=== PATIENT | male | born 1955 | race Caucasian/White ===

== ENCOUNTER → 2023-10-02 08:00 | Outpatient (REF) | payer OTHER, SELFPAY | LOC: RAD 08:00 | PROVIDERS: ATTENDING PHYSICIAN Surgery | DX: R31.9 Hematuria, unspecified (principal) | CPT/HCPCS: 74178; Q9967 ==

== ENCOUNTER 2023-11-06 05:53 | Day surgery (SDC) | payer OTHER, SELFPAY ==
[2023-11-04 10:40] LABS: PT 13.2 Sec (11.4-14.6)
[2023-11-04 10:41] LABS: APTT 29.1 Sec (23.4-35.0); Urine Albumin 1+ (Neg - Trace); Urine Bilirubin Negative (Negative); Urine Character Clear (Clear); Urine Color Yellow; Urine Glucose Negative (Negative); Urine Ketone Negative (Negative); Urine Leukocyte Negative (Negative); Urine Nitrite Negative (Negative); Urine Occult Blood 4+ (Negative); Urine Specific Gravity 1.015 (<1.030); Urine Urobilinogen Negative (Neg - 1+)
[2023-11-04 10:47] LABS: Hematocrit 41.6 % (39.0-52.0); Hemoglobin 14.3 g/dL (13.0-18.0); Mean Corp Hgb Conc. 34.4 g/dL (33.0-37.0); Mean Corpuscular Hgb 29.5 pg (27.0-31.0); Mean Corpuscular Volume 85.8 fL (80.0-94.0); Mean Platelet Volume 11.5 fL (7.4-10.4); Platelet Count 292 10^3/uL (130-400); Red Blood Cell Count 4.85 10^6/uL (4.70-6.10); Red Cell Dist. Width 13.3 % (11.5-14.5); White Blood Cell Count 12.5 10^3/uL (4.8-10.8)
[2023-11-04 10:51] LABS: Urine Mucus Few; Urine Squamous Cell 0-2 /LPF (Few)
[2023-11-04 10:53] LABS: Urine Bacteria Few (Negative); Urine White Cell 16-20 /HPF (0-5)
[2023-11-04 11:05] LABS: Blood Urea Nitrogen 23 mg/dl (9-20); Calcium 8.8 mg/dl (8.4-10.2); Carbon Dioxide 21 mmol/L (22-30); Chloride 106 mmol/L (98-107); Glucose 101 mg/dl (70-99); Potassium 4.5 mmol/L (3.5-5.1); Sodium 136 mmol/L (135-145); eGFR > 60.00
--- NOTE | 2023-11-04 11:31 | PTCARENOTE ---
Patients 11/03 UA w/ ROLAND Anglin @ Dr. Beckett office notified
[2023-11-04 14:00] VITALS: BMI 27.6
[2023-11-06] VITALS (12 sets, daily range): BP systolic 120–175; BP diastolic 65–92; BMI 27.6
[2023-11-06] MEDS: CYSVIEW KIT 100 MG INTRAVES (13:10)
--- NOTE | 2023-11-06 16:29 | W.IMMPOSTOP ---
Surgical Immed Post Op Note
-
Primary Surgeon: Jax
Pre-op Diagnosis: Large bladder tumor
Post-op Diagnosis: Same
Procedure Performed:
1. Intravesical instillation Cysview
2. Blue light TURBT (large, >7.0 cm)
Anesthesia Type: GETA
Specimen / Cultures: Right trigone bladder tumor/None
Estimated Blood Loss: 10 cc
Drains: 24Fr 3-way Cisneros catheter
Complications: None
Operative Findings:
1. Massive >6.0 cm bladder tumor emanating from right UO - stalk severed and resected at UO.
2. Complete resection of primary tumor site in addition to 5 satellite papillary lesions (< 1 cm) on right lateral bladder wall.
3. Satisfactory hemostasis in no flow, low pressure state on final cysto.
Patient's friend (Crispin) updated post-op - admit for observation o/n for CBI.
[2023-11-06] MEDS: DETROL LA 4 MG PO (17:10)
[2023-11-06] MEDS: VALIUM INJECTION 2 MG IV (17:16)
[2023-11-06] MEDS: NSS 1000 IV (17:27)
--- NOTE | 2023-11-06 18:12 | PTCARENOTE ---
Patient admitted from [facility] post TURBT for a bladder tumor.Vital signs are stable.The patient complains of pressure a 5 out of 10.Urine is a light pink with bladder irrigation running.The patient is in his bed with the call king.
[2023-11-06] MEDS: NORMOSOL-R 1000 IV (18:15)
[2023-11-06] MEDS: VALIUM INJECTION 2 MG IM (18:15)
[2023-11-06] MEDS: DITROPAN 5 MG PO (20:14)
[2023-11-07] MEDS: ULTRAM 50 MG PO (00:29)
[2023-11-07 02:53] VITALS: BP 115/64
[2023-11-07] MEDS: NSS 1000 IV (04:20)
[2023-11-07 06:22] LABS: % Basophils 0.1 % (0-2); % Immature Granulocytes 0.7 % (0-0.5); % Lymphocytes 5.7 % (20.5-51.1); % Monocytes 2.2 % (1.7-9.3); % Neutrophils 91.3 % (42.2-75.2); Absolute Immature Granulocytes 0.1 10^3/uL (0-0.05); Absolute Lymphocytes 1.1 10^3/uL (1.2-3.4); Absolute Monocytes 0.4 10^3/uL (0.1-0.6); Absolute Neutrophils 17.2 10^3/uL (1.4-6.5); Hematocrit 36.2 % (39.0-52.0); Hemoglobin 12.6 g/dL (13.0-18.0); Mean Corp Hgb Conc. 34.8 g/dL (33.0-37.0); Mean Corpuscular Hgb 29.4 pg (27.0-31.0); Mean Corpuscular Volume 84.6 fL (80.0-94.0); Mean Platelet Volume 11.1 fL (7.4-10.4); Nucleated Red Blood Cells % 0 % (-); Platelet Count 267 10^3/uL (130-400); Red Blood Cell Count 4.28 10^6/uL (4.70-6.10); Red Cell Dist. Width 13.2 % (11.5-14.5); White Blood Cell Count 18.8 10^3/uL (4.8-10.8)
[2023-11-07 07:35] VITALS: BP 128/69
[2023-11-07 10:23] LABS: Blood Urea Nitrogen 18 mg/dl (9-20); Calcium 8.4 mg/dl (8.4-10.2); Carbon Dioxide 19 mmol/L (22-30); Chloride 110 mmol/L (98-107); Estimated Creatinine Clearance 77 ml/min; Glucose 98 mg/dl (70-99); Potassium 4.9 mmol/L (3.5-5.1); Sodium 136 mmol/L (135-145); eGFR > 60.00
--- NOTE | 2023-11-07 11:37 | W.PN.URO.CBU ---
Today's Communication / Plan
-
Discharge
Assessment / Plan
-
No hematuria off CBI. Cap CBI port
Discharge home with maldonado
Follow up with Dr. Camara as scheduled
Diagnosis
-
Date of Service: November 07, 2023
-
Patient Diagnosis: bladder tumor
Post Op Day: s/p TURBT
Subjective
-
no issues overnight
pain controlled
no hematuria
Objective
-
Vital Signs
Temp Pulse Resp BP Pulse Ox
97.4 F 65 18 128/69 99
11/07/23 07:35 11/07/23 07:35 11/07/23 07:35 11/07/23 07:35 11/07/23 07:35
Intake and Output
11/06/23 11/07/23 11/08/23
06:59 06:59 06:59
Intake Total 1300 / 1300
Output Total 40180 / 26724
Balance -05584 / -05202
Intake:
Oral fluids 300 / 300
IV fluids (Total) 1000 / 1000
NSS 0 / 0
Normosol 100 / 100
Output:
True Urine Output from CBI 33777 / 51405
Laboratory Results
11/07/23 05:33
11/07/23 05:33
Physical Exam
-
General - well developed, well nourished, no acute distress
Chest - clear bilaterally
Abdomen - soft, non-tender
Maldonado in place, light pink urine
Skin - warm & dry with no rash
Neuro - AOx3, no motor deficits
Extremities - no clubbing, no cyanosis, no edema
[2023-11-07 12:10] VITALS: BP 128/88
--- NOTE | 2023-11-07 12:59 | CM ---
Reviewed the chart notes and spoke with the patient at the bedside. The patient resides with his friend in a three story home with a flight of steps to enter. The patient reports no DME/VN/SNF in the past. The patient is discharged to home today
with no anticipated needs. The patient is discharged with maldonado. RN to instruction on leg bag placement and emptying the urine bags. The patient's friend will provide transportation home. CM continues to be available to patient/family and is
monitoring medical plan for needs at discharge.
plan: Discharge to home with no needs being identified at this time.
[2023-11-09 19:08] LABS: Hepatitis C Antibody Negative (Negative)
== END 2023-11-07 14:36 | disposition home or self-care (01) ==
LOC: SDS 05:53
PROVIDERS: ATTENDING PHYSICIAN Surgery; FAMILY PHYSICIAN Internal Medicine
DX: C67.9 Malignant neoplasm of bladder, unspecified (principal); R31.9 Hematuria, unspecified
CPT/HCPCS: 52240; 88307; 36415; 80048; 81003; 81015; 85025; 85027; 85610; 85730; 86803; 90677; 93005; A9589; C1713; G0009; J9201

== ENCOUNTER 2023-11-25 19:01 | Inpatient (IN) | payer OTHER, SELFPAY ==
[2023-11-25] VITALS (9 sets, daily range): BP systolic 119–145; BP diastolic 67–74; BMI 25.9; BMI 25.0
[2023-11-25 11:25] LABS: % Basophils 0.2 % (0-2); % Immature Granulocytes 1.2 % (0-0.5); % Lymphocytes 3.5 % (20.5-51.1); % Monocytes 2.6 % (1.7-9.3); % Neutrophils 92.5 % (42.2-75.2); Absolute Basophils 0.1 10^3/uL (0-0.2); Absolute Immature Granulocytes 0.3 10^3/uL (0-0.05); Absolute Monocytes 0.7 10^3/uL (0.1-0.6); Absolute Neutrophils 26.2 10^3/uL (1.4-6.5); Hematocrit 29.2 % (39.0-52.0); Hemoglobin 10.4 g/dL (13.0-18.0); Mean Corp Hgb Conc. 35.6 g/dL (33.0-37.0); Mean Corpuscular Hgb 28.7 pg (27.0-31.0); Mean Corpuscular Volume 80.7 fL (80.0-94.0); Mean Platelet Volume 9.3 fL (7.4-10.4); Nucleated Red Blood Cells % 0 % (-); Platelet Count 715 10^3/uL (130-400); Red Blood Cell Count 3.62 10^6/uL (4.70-6.10); Red Cell Dist. Width 13.8 % (11.5-14.5); White Blood Cell Count 28.3 10^3/uL (4.8-10.8)
[2023-11-25 11:47] LABS: ALT (SGPT) 95 U/L (0-50); AST (SGOT) 117 U/L (17-59); Albumin 2.9 g/dl (3.5-5.0); Alkaline Phosphatase 143 U/L (38-126); Blood Urea Nitrogen 28 mg/dl (9-20); Calcium 7.8 mg/dl (8.4-10.2); Carbon Dioxide 21 mmol/L (22-30); Chloride 97 mmol/L (98-107); Glucose 108 mg/dl (70-99); Potassium 4.2 mmol/L (3.5-5.1); Sodium 125 mmol/L (135-145); Total Bilirubin 0.9 mg/dl (0.2-1.3); Total Protein 6.3 g/dl (6.3-8.2); eGFR > 60.00
[2023-11-25 11:59] LABS: NT-proBNP 892 pg/ml; Troponin I < 0.012 ng/ml
--- NOTE | 2023-11-25 14:40 | ED.GENMED ---
History of Present Illness
General
Chief Complaint: Breathing Problem
Time Seen by Provider: 11/25/23 14:14
Travel History
Have you had any contact with someone who has COVID-19?: No
Do you have any symptoms of coronavirus? Fever > 100 degrees, chills, cough, shortness of breath, sore throat, loss of taste or smell, muscle aches, or headache?: No
History of Present Illness
History of Present Illness:
68-year-old male presents the emergency department for evaluation of general fatigue. He states he has felt progressively worse since his TURBT on 11/05, done here by Dr Camara. Reports lightheadedness with ambulation also reports a mild dry cough
and shortness of breath with ambulation. Denies any nausea, vomiting, or diarrhea. Denies any lower urinary tract voiding symptoms or gross hematuria.
Review of Systems
Review of Systems
Allergies reviewed?: Yes
All Other Systems: ROS reviewed and negative except as documented in HPI and ROS
Phy Exam
Physical Exam
Physical Exam:
GEN: Well appearing, NAD, WDWN
Eyes: PERRLA, EOMs intact, no scleral icterus
HENT: NCAT, oral mucosa moist
Lungs: CTAB, no wheezes, rales, rhonchi, normal chest wall excursion
Cardiac: RRR, no M/R/G, no peripheral edema. Radial pulses 2+ bilat
Abdomen: S, NT, ND, NABS, no masses or hepatosplenomegaly
Neuro: AO x 3
MSK: No gross deformity or ecchymosis. No edema. No digital clubbing
Skin: No rashes, petechiae. Normal color, no pallor or jaundice.
Psych: Calm, cooperative, proper hygiene
Scores
Heart Failure Risk
Heart Failure Risk Score: Not Applicable
Course
Orders/Labs/Results
Orders:
Orders
11/25/23 11:09
ECG [Electrocardiogram (*1)] Urgent
Reason for Study: Shortness of Breath
11/25/23 11:10
EKG- Treatment ONCE
11/25/23 11:19
Complete Blood Count/With Diff Urgent
Comprehensive Metabolic Panel Urgent
NT-proBNP Urgent
Serum Osmolality Urgent
Troponin I Urgent
11/25/23 14:22
Add On- LAB Urgent
Tests Added?: serum osmol
11/25/23 14:29
0.9% Sodium Chloride 500 ml [Nss] 500 ml IV BOLUS
11/25/23 14:30
CR Chest - 2 Views Urgent
Comment:
Reason For Exam: cough, leukocytosis
11/25/23 14:41
COVID-19 Antigen Urgent
Source: Nasal Swab
Lactic Acid Q4H
Comment: CANCEL 2nd LACTIC ACID IF 1st LACTIC ACID IS LESS THAN 2
Blood Culture Q30M
CELESTINO Source: Blood/Venous
Specimen Description:
11/25/23 14:42
Blood Culture Q30M
CELESTINO Source: Blood/Venous
Specimen Description:
Influenza A+B Rapid Molecular Urgent
CELESTINO Source: Nasal Swab
Specimen Description:
11/25/23 15:36
Osmolality, Random Urine Urgent
Date Specimen was Collected: 11/25/23
Time Specimen was Collected: 15:31
Urinalysis Reflex To Culture Urgent
Date Specimen was Collected: 11/25/23
Time Specimen was Collected: 15:31
Urine Microscopic Reflex Cult Urgent
Urine Sodium Urgent
Date Specimen was Collected: 11/25/23
Time Specimen was Collected: 15:31
Urine Culture Urgent
CELESTINO Source: U
Specimen Description:
Date Specimen was Collected: 11/25/23
Time Specimen was Collected: 15:31
11/25/23 16:04
CT Abd/pel Without Iv Or Oral Urgent
Comment:
Reason For Exam: UTI/hematuria
11/25/23 16:33
Gentamicin Sulfate [Gentamicin] 160 mg 0.9% Sodium Chloride [Nss] 50 ml IV NOW
11/25/23 18:22
Admit/Transfer Patient As Directed
Co-Sign Provider:
Level of Care: Inpatient admission
Assign to:: Medical/Surgical
Physician / Group: jn
Diagnosis: uti/pneumonia
Reason for Hospitalization: uti/pneumonia
Expected length of stay greater than two midnights?: Yes
ELOS- Estimated Length of Stay in days: 2
I certify the patient meets the requirements for IP care: Yes
Code Status As Directed
Resuscitation Status: Full Code
11/25/23 18:34
Add On - Microbiology Urgent
Tests Added?: Urine osmolality and urine sodium
11/25/23 18:40
Sputum Culture [Respiratory Culture/Gram Stain] Routine
CELESTINO Source: Sputum
Specimen Description:
Abnormal Lab Results
11/25/23 11/25/23
11:19 15:36
WBC 28.3 H 10^3/uL
(4.8-10.8)
RBC 3.62 L 10^6/uL
(4.70-6.10)
Hgb 10.4 L g/dL
(13.0-18.0)
Hct 29.2 L %
(39.0-52.0)
Plt Count 715 H 10^3/uL
(130-400)
Abs Immat Gran (auto) 0.3 H 10^3/uL
(0-0.05)
Absolute Neuts (auto) 26.2 H 10^3/uL
(1.4-6.5)
Absolute Lymphs (auto) 1.0 L 10^3/uL
(1.2-3.4)
Absolute Monos (auto) 0.7 H 10^3/uL
(0.1-0.6)
Immature Gran % 1.2 H %
(0-0.5)
Neutrophils % 92.5 H %
(42.2-75.2)
Lymphocytes % 3.5 L %
(20.5-51.1)
Sodium 125 L mmol/L
(135-145)
Chloride 97 L mmol/L
(98-107)
Carbon Dioxide 21 L mmol/L
(22-30)
BUN 28 H mg/dl
(9-20)
Glucose 108 H mg/dl
(70-99)
Serum Osmolality 268 L mOsm/kg
(275-300)
Calcium 7.8 L mg/dl
(8.4-10.2)
AST 117 H U/L
(17-59)
ALT 95 H U/L
(0-50)
Alkaline Phosphatase 143 H U/L
(38-126)
Albumin 2.9 L g/dl
(3.5-5.0)
Urine Ketones 1+ A
(Negative)
Ur Occult Blood Reflex 4+ A
(Negative)
Urine Nitrite (Reflex) Positive A
(Negative)
Urine Bilirubin 1+ A
(Negative)
Leukocyte Esterase Rfl 2+ A
(Negative)
Urine RBC 30-40 A /HPF
(0-2)
Urine WBC (Reflex) 40-50 A /HPF
(0-5)
Urine Bacteria (Reflex) Many A
(Negative)
Urine Sodium 12 L mmol/L
(30-90)
11/25/23 11:19
11/25/23 11:19
Vital Signs
Initial and Last Documented VS:
Initial Vital Signs
Temp Pulse Resp BP Pulse Ox
97.6 F 78 18 126/70 94
11/25/23 11:08 11/25/23 11:08 11/25/23 11:08 11/25/23 11:08 11/25/23 11:08
Last Documented Vital Signs
Temp Pulse Resp BP Pulse Ox
99.4 F 76 19 123/67 95
11/25/23 14:19 11/25/23 18:36 11/25/23 18:36 11/25/23 17:14 11/25/23 14:19
MDM/Problems Addressed
MDM/Problems Addressed:
Patient is found to have severe leukocytosis. Of note he did have leukocytosis around the time of his operation but it is dramatically worse today. He is also hyponatremic which may be hypovolemic in nature given his generalized weakness and poor
p.o. intake. Is concerning for a retroperitoneal hematoma which may be postoperative in nature versus related to calyceal rupture in the setting of severe ongoing hydronephrosis. Patient started on broad-spectrum IV antibiotics, gentamicin given
due to recent urologic surgery. While he does have mild cough and a right pleural effusion I do not suspect pneumonia, this may be reactive in the setting of adjacent intra abdominal/retroperitoneal process. Will admit to the hospital service,
urology was made aware as percutaneous nephrostomy may be necessary due to the severe hydronephrosis
*Critical Care Note
Total Time (30-74mins, 75-104mins- exclusive of procedures): Not Applicable
ED Attending Note
-
Portions of this chart may have been created with voice recognition software.� Occasional wrong word or��sound alike� substitutions may have occurred due to the inherent limitations of voice recognition software.
Discharge Plan
Departure
Patient Disposition: Admit
Date of Disposition: 11/25/23
Time of Disposition: 17:55
Presentation/result/management discussed w/ accepting MD/DO: Hospitalist
Discharge Problem:
Urinary tract infection, Sepsis, Acute hyponatremia, Pleural effusion on right
Interventions
Interventions:
*Risk Screen - Suicide Last Done: 11/25/23 14:22
*General Assessment Last Done: 11/25/23 14:22
*Neglect/Abuse Screening Last Done: 11/25/23 14:22
ED- Fall Risk Assessment Last Done: 11/25/23 14:49
*ED COVID-19 Vaccine History Last Done: 11/25/23 11:08
ED- Cardiac Assessment Last Done: 11/25/23 14:25
ED- Pulmonary Assessment Last Done: 11/25/23 14:25
[2023-11-25] MEDS: NSS 500 IV (14:44)
[2023-11-25 15:07] LABS: Lactic Acid 1.1 mmol/L (0.7-2.0)
[2023-11-25 15:10] LABS: COVID-19 Antigen Negative (Negative)
[2023-11-25 15:48] LABS: Osmolality Serum 268 mOsm/kg (275-300)
[2023-11-25 15:49] LABS: Urine Albumin Trace (Neg - Trace); Urine Bilirubin 1+ (Negative); Urine Character Slightly Cloudy (Clear); Urine Color Yellow; Urine Glucose Negative (Negative); Urine Ketone 1+ (Negative); Urine Leukocyte 2+ (Negative); Urine Nitrite Positive (Negative); Urine Occult Blood 4+ (Negative); Urine Urobilinogen Negative (Neg - 1+)
[2023-11-25 15:52] LABS: Osmolality Urine 626 mOsm/kg (300-900)
[2023-11-25 16:20] LABS: Urine Mucus Few; Urine Squamous Cell 0-2 /LPF (Few)
[2023-11-25 16:21] LABS: Urine Bacteria Many (Negative); Urine Red Blood Cell 30-40 /HPF (0-2); Urine White Cell 40-50 /HPF (0-5)
[2023-11-25 16:37] LABS: Urine Sodium 12 mmol/L (30-90)
[2023-11-25] MEDS: GENTAMICIN 54 MG IV (17:11)
--- NOTE | 2023-11-25 18:37 | HPS.HSE ---
Family Physician
-
Family Physician: Cheng Castillo
Chief Complaint
-
fatigue
History of Present Illness
68-year-old male past medical history of bladder tumor status post TURBT on 11/[address] Camara presenting with generalized fatigue since the TURBT on 11/05. He has had intermittent dry cough since then but denies any shortness of breath or chest
pain. He has had intermittent chills. He denies any abdominal pain or nausea or vomiting. He did have loose diarrhea once a day until last week but he started taking loperamide and now has not had a bowel movement in a few days. He denies any
urinary symptoms. He has had decreased p.o. intake.
He denies current smoking or alcohol use.
Medical History
Past Medical History
Past Medical History: Reports Other (bladder tumor status post TURBT)
Past Surgical History: Reports None
Social History
Tobacco: Non-smoker
Alcohol: None
Drug: None
Family History
Family History: Not pertinent
Allergies / Home Medications
Allergies reflects when Allergies were last updated in [email or web address].
Home Medications with original date entered in [email or web address]
Allergy/Medication List:
Allergies
Allergy/AdvReac Type Severity Reaction Status Date / Time
No Known Allergies Allergy Verified 11/25/23 11:08
Home Medications
loperamide 2 mg tablet 2 mg PO TIDPRN PRN diarrhea 11/25/23
tamsulosin 0.4 mg capsule (Flomax) 0.4 mg PO BID 11/25/23
Review of Systems
-
History Source: Patient
A 12 point ROS was completed and negative except as noted: Yes
Constitutional: Reports No Symptoms
EENT: Reports No Symptoms
Respiratory: Reports See HPI
Cardiac: Reports No Symptoms
Abdomen/GI: Reports No Symptoms
: Reports No Symptoms
Musculoskeletal: Reports No Symptoms
Skin: Reports No Symptoms
Neurological: Reports No Symptoms
Endocrine: Reports No Symptoms
Hematologic/Lymphatic: Reports No Symptoms
Psych: Reports No Symptoms
Physical Exam
Vital Signs
Vital Signs
Temp Pulse Resp BP Pulse Ox
99.4 F 75 20 123/67 95
11/25/23 14:19 11/25/23 17:15 11/25/23 17:15 11/25/23 17:14 11/25/23 14:19
Physical Exam
General: Well Developed, Well Nourished and No Apparent Distress
HEENT: NormoCephalic, Moist mucous membranes and Atraumatic
Respiratory: Clear
Cardiac: S1/S2 and Regular Rhythm; No Murmur or Rub
GI: Soft, Non Tender, Non Distended and Normal Bowel Sounds; No Organomegaly
Rectal: Deferred by Provider
Musculoskeletal: No Clubbing, No Cyanosis and No Edema
Skin: No Rash
Neuro: Nonfocal/grossly intact
Laboratory Results
-
11/25/23 11:19
11/25/23 11:19
Laboratory Results
Lactic Acid Cancelled 11/25/23 18:30
Total Bilirubin 0.9 mg/dl (0.2-1.3) 11/25/23 11:19
AST 117 U/L (17-59) H 11/25/23 11:19
ALT 95 U/L (0-50) H 11/25/23 11:19
Alkaline Phosphatase 143 U/L (38-126) H 11/25/23 11:19
Troponin I < 0.012 ng/ml 11/25/23 11:19
Data Reviewed
-
Lab Data: Labs Reviewed by me
Old Records: Reviewed
Impression/Plan
-
IMPRESSION:
PLAN:
# Large retroperitoneal perinephric hematoma with severe right hydronephrosis/hydroureter/UPJ obstruction
-CT abdomen pelvis shows large retroperitoneal perinephric hematoma displacing the right kidney slightly anteriorly persistent severe right hydronephrosis/hydroureter with enlarged extrarenal pelvis suggesting UPJ obstruction
-Urology consulted and considering percutaneous nephrostomy tube
-N.p.o. past midnight
# Obstructive pyelonephritis from UPJ obstruction
# Bladder tumor status post recent TURBT on 11/05
-Urinalysis indicative of infection
-Check urine culture, blood culture
-IV fluids
-Zosyn
# Right base pneumonia with possible mild to moderate right pleural effusion likely from aspiration from anesthesia during TURBT
-Check sputum culture
-Zosyn
# Small to moderate asymptomatic pericardial effusion
-EKG shows normal sinus rhythm
-No evidence of pericarditis clinically
-Check echo
# Hyponatremia secondary to decreased p.o. intake/prior diarrhea
-Check urine sodium, osmolality
-Monitor with IV fluids
-Monitor for further diarrhea
-Hold loperamide
# Constipation secondary to loperamide use
-As needed MiraLAX if needed
-Hold loperamide
# Transaminitis unclear etiology
-Continue to monitor
Full code
DVT prophylaxis�SCDs
N.p.o. past midnight
[2023-11-25] MEDS: ZOSYN 50 IV (22:40)
[2023-11-25] MEDS: FLOMAX 0.400000000000000022 MG PO (22:40)
[2023-11-25] MEDS: NSS 1000 IV (22:41)
--- NOTE | 2023-11-25 23:01 | W.PN.URO.CBU ---
Today's Communication / Plan
-
no new gu intervetion
Assessment / Plan
-
complex uti r/out sepsis with chronic rt hydro due to tcc of uretr had turbt with post op maldonado developed fatige wcb elevted fever and peiuretralstranding and heamtoma plan russell cx ivf iv abs if does not improve then drain hemtoma ad place
rt perc tube
Diagnosis
-
Date of Service: November 25, 2023
-
Patient Diagnosis:
rt hydrp hatoma complex uti pst turbt
Post Op Day:
Subjective
-
complex uti post turbt and rt hydro sirs with rt periureteral and perinephric hematoma fever chils fatigue
Objective
-
Vital Signs
Temp Pulse Resp BP Pulse Ox
98.9 F 81 18 145/74 95
11/25/23 21:35 11/25/23 21:35 11/25/23 21:35 11/25/23 21:35 11/25/23 21:35
Laboratory Results
11/25/23 11:19
11/25/23 11:19
Review of Systems
-
Constitutional: Fever, Night Sweats and Chills
Abdomen/GI: Abdominal Pain
: Flank Pain
Physical Exam
-
General - well developed, well nourished, no acute distress
Chest - clear bilaterally
Abdomen - soft, non-tender, positive bowel sounds, no CVAT, no incisional pain or distention
Genitalia - normal
Rectal - normal
Skin - warm & dry with no rash
Neuro - AOx3, no motor deficits
Extremities - no clubbing, no cyanosis, no edema
Incision - clean, dry
Dressing - clean, dry, intact
Care Review
Data Reviewed
Discussed with: Hospitalist, Internal Medicine and Other (attending urologist)
CT Scan: Image Pers Reviewed
--- NOTE | 2023-11-26 00:05 | PTCARENOTE ---
Pt admitted to unit from ED. Pt ambulated self to bed with nursing staff. AAXO3. VS: Temp 98.9, Pulse 81, BP 145/74, RR 18, and O2 95% on RA. Pt oriented to room with call king in reach. Plan of care ongoing.
[2023-11-26] MEDS: ZOSYN 50 IV ×4 (04:26→21:15)
[2023-11-26 07:30] VITALS: BP 117/61
[2023-11-26 07:32] LABS: % Basophils 0.2 % (0-2); % Eosinophils 0.1 % (0-6); % Immature Granulocytes 1.5 % (0-0.5); % Lymphocytes 4.2 % (20.5-51.1); % Monocytes 2.7 % (1.7-9.3); % Neutrophils 91.3 % (42.2-75.2); Absolute Immature Granulocytes 0.4 10^3/uL (0-0.05); Absolute Lymphocytes 1.1 10^3/uL (1.2-3.4); Absolute Monocytes 0.7 10^3/uL (0.1-0.6); Absolute Neutrophils 23.1 10^3/uL (1.4-6.5); Hematocrit 29.3 % (39.0-52.0); Hemoglobin 9.9 g/dL (13.0-18.0); Mean Corp Hgb Conc. 33.8 g/dL (33.0-37.0); Mean Corpuscular Hgb 28.2 pg (27.0-31.0); Mean Corpuscular Volume 83.5 fL (80.0-94.0); Mean Platelet Volume 9.6 fL (7.4-10.4); Nucleated Red Blood Cells % 0 % (-); Platelet Count 717 10^3/uL (130-400); Red Blood Cell Count 3.51 10^6/uL (4.70-6.10); Red Cell Dist. Width 14.1 % (11.5-14.5); White Blood Cell Count 25.3 10^3/uL (4.8-10.8)
[2023-11-26 08:07] LABS: ALT (SGPT) 82 U/L (0-50); AST (SGOT) 111 U/L (17-59); Albumin 2.6 g/dl (3.5-5.0); Alkaline Phosphatase 132 U/L (38-126); Blood Urea Nitrogen 25 mg/dl (9-20); Calcium 7.5 mg/dl (8.4-10.2); Carbon Dioxide 19 mmol/L (22-30); Chloride 101 mmol/L (98-107); Estimated Creatinine Clearance 66 ml/min; Glucose 90 mg/dl (70-99); Potassium 4.4 mmol/L (3.5-5.1); Sodium 127 mmol/L (135-145); Total Bilirubin 0.9 mg/dl (0.2-1.3); Total Protein 5.6 g/dl (6.3-8.2); eGFR > 60.00
--- NOTE | 2023-11-26 09:22 | W.PN.URO.CBU ---
Today's Communication / Plan
-
may eat continue present care
Assessment / Plan
-
complex uti r/out sepsis with chronic rt hydro due to tcc of ureter had turbt with post op maldonado developed fatigue witb elevated fever and periuretral stranding and hematoma plan russell cx ivf iv abs if does not improve then drain hemtoma ad
place rt perc tube Howver clinically imptoved but wbc still elevated hgb sl down will observe continue iv abs and await cxs
Diagnosis
-
Date of Service: November 26, 2023
-
Patient Diagnosis:
Post Op Day:
Patient Diagnosis:
rt hydro chronic with acute periyertal stranding and hematoma complex uti post turbt
Subjective
-
much impoved over last nignt
Objective
-
Vital Signs
Temp Pulse Resp BP Pulse Ox
97.9 F 77 18 117/61 96
11/26/23 07:30 11/26/23 07:30 11/26/23 07:30 11/26/23 07:30 11/26/23 07:30
Intake and Output
11/25/23 11/26/23 11/27/23
06:59 06:59 06:59
Intake Total 1060 / 1060 642 / 642
Output Total 175 / 175
Balance 885 / 885 642 / 642
Intake:
Oral fluids 960 / 960
IV fluids (Total) 642 / 642
IV piggybacks 100 / 100
Output:
Urine, Voided 175 / 175
Other:
Number of approximated MODERATE 2
amounts of urine
Laboratory Results
11/26/23 06:59
11/26/23 06:59
Physical Exam
-
General - well developed, well nourished, no acute distress
Chest - clear bilaterally
Abdomen - soft, non-tender, positive bowel sounds, no CVAT, no incisional pain or distention
Genitalia - normal
Rectal - normal
Skin - warm & dry with no rash
Neuro - AOx3, no motor deficits
Extremities - no clubbing, no cyanosis, no edema
Incision - clean, dry
Dressing - clean, dry, intact
Counseling
-
no gu changes
Care Review
Data Reviewed
Discussed with: Nursing
CT Scan: Image Pers Reviewed
[2023-11-26] MEDS: FLOMAX 0.400000000000000022 MG PO ×2 (09:30→20:00)
[2023-11-26] MEDS: NSS 1000 IV ×2 (09:30→21:15)
--- NOTE | 2023-11-26 10:24 | CM ---
customer business manager reviewed patient's chart and met with patient and patient lives with a friend in a 2 story home with 12 steps to enter, patient is independent with adl's and ambulation, no dme, patient drives, patient has a prescription plan and uses
[facility] pharmacy, Patient requested information on AD, AD packet provided to patient.
PCP Dr. Castillo
Plan; Home with friend when stable.
--- NOTE | 2023-11-26 13:46 | W.PN.HOSP.TC ---
Today's Communication/Plan
-
f/u ruology recs
monitor renal function
Abx, f/u urine cultures
Assessment / Plan
Assessment / Plan
Physical Exam
General: Well Developed, Well Nourished and No Apparent Distress
HEENT: NormoCephalic, Moist mucous membranes and Atraumatic
Respiratory: Clear
Cardiac: S1/S2 and Regular Rhythm; No Murmur or Rub
GI: Soft, Non Tender, Non Distended and Normal Bowel Sounds; No Organomegaly
Rectal: Deferred by Provider
Musculoskeletal: No Clubbing, No Cyanosis and No Edema
Skin: No Rash
Neuro: Nonfocal/grossly intact
# Large retroperitoneal perinephric hematoma with severe right hydronephrosis/hydroureter/UPJ obstruction
# Obstructive pyelonephritis from UPJ obstruction
# Bladder tumor status post recent TURBT on 11/05
-CT abdomen pelvis shows large retroperitoneal perinephric hematoma displacing the right kidney slightly anteriorly persistent severe right hydronephrosis/hydroureter with enlarged extrarenal pelvis suggesting UPJ obstruction
-Urology consulted and considering percutaneous nephrostomy tube if needed
-If not improving, then also drain hematoma
#complex UTI
--Urinalysis indicative of infection
-Check urine culture, blood culture
-IV fluids
-Zosyn
-see plan above
# Right base pneumonia with possible mild to moderate right pleural effusion likely from aspiration from anesthesia during TURBT
-Check sputum culture
-Zosyn
# Small to moderate asymptomatic pericardial effusion
-EKG shows normal sinus rhythm
-No evidence of pericarditis clinically
-Check echo
#Thrombocytosis
-thrombocytosis
# Hyponatremia secondary to decreased p.o. intake/prior diarrhea
-Check urine sodium, osmolality
-Monitor with IV fluids
-Monitor for further diarrhea
-Hold loperamide
-CTM with resuscitation, slowly improving
# Constipation secondary to loperamide use
-As needed MiraLAX if needed
-Hold loperamide
# Transaminitis unclear etiology
-Continue to monitor
possibly 2/2 to infection
Full code
DVT prophylaxis�SCDs
Total time spent on today's encounter was 50 minutes which included time spent in counseling the patient/family regarding diagnosis and treatment plan as listed above, goals of care, and symptom management. Case was discussed with nursing staff,
specialists, and care coordinators/case management. All labs and imaging personally reviewed by me. Remainder the time spent in detailed review of previous records, lab data, imaging, and other medical provider documentation.
Anticipated Discharge: > 48 hours
Subjective/Interval History
-
Date of Service: November 26, 2023
TURBT today
Objective Data
-
Labs:
Laboratory Results
11/26/23
06:59
WBC 25.3 H
Hgb 9.9 L
Hct 29.3 L
Plt Count 717 H
Sodium 127 L
Potassium 4.4
Chloride 101
Carbon Dioxide 19 L
BUN 25 H
Creatinine 1.1
Glucose 90
Calcium 7.5 L
Total Bilirubin 0.9
AST 111 H
ALT 82 H
Alkaline Phosphatase 132 H
Vital Signs:
Vital Signs
Temp Pulse Resp BP Pulse Ox
97.9 F 77 18 117/61 96
11/26/23 07:30 11/26/23 07:30 11/26/23 07:30 11/26/23 07:30 11/26/23 07:30
I&O
11/25/23 11/26/23 11/27/23
06:59 06:59 06:59
Intake Total 1060 / 1060 642 / 642
Output Total 175 / 175
Balance 885 / 885 642 / 642
Review of Systems
-
History Source: Patient
All other systems: Not reviewed unless documented
Data Reviewed
-
Diagnostic Radiology: Image personally visualized and interpreted and Report Reviewed by me
CT Scan: Image personally visualized and interpreted and Report Reviewed by me
Labs: Labs Reviewed by me
[2023-11-26 15:10] VITALS: BMI 25.0
[2023-11-26 15:15] VITALS: BP 122/68
[2023-11-26 18:52] LABS: Hepatitis B Surface Antigen Negative (Negative)
[2023-11-26 19:08] LABS: Hepatitis C Antibody Negative (Negative)
[2023-11-26 19:09] LABS: Hepatitis B Surface Antibody Positive; Hepatitis C Antibody Negative (Negative)
[2023-11-26 23:34] VITALS: BP 122/64
[2023-11-27] MEDS: ZOSYN 50 IV ×2 (04:13→09:04)
[2023-11-27 07:21] LABS: Hematocrit 28.4 % (39.0-52.0); Hemoglobin 9.6 g/dL (13.0-18.0); Mean Corp Hgb Conc. 33.8 g/dL (33.0-37.0); Mean Corpuscular Hgb 28.2 pg (27.0-31.0); Mean Corpuscular Volume 83.5 fL (80.0-94.0); Mean Platelet Volume 9.4 fL (7.4-10.4); Platelet Count 786 10^3/uL (130-400); Red Cell Dist. Width 14.4 % (11.5-14.5); White Blood Cell Count 24.4 10^3/uL (4.8-10.8)
[2023-11-27 07:30] VITALS: BP 114/60
[2023-11-27 08:12] LABS: ALT (SGPT) 70 U/L (0-50); AST (SGOT) 79 U/L (17-59); Albumin 2.4 g/dl (3.5-5.0); Alkaline Phosphatase 122 U/L (38-126); Blood Urea Nitrogen 20 mg/dl (9-20); Calcium 7.7 mg/dl (8.4-10.2); Carbon Dioxide 19 mmol/L (22-30); Chloride 100 mmol/L (98-107); Estimated Creatinine Clearance 66 ml/min; Glucose 87 mg/dl (70-99); Sodium 131 mmol/L (135-145); Total Bilirubin 0.8 mg/dl (0.2-1.3); Total Protein 5.4 g/dl (6.3-8.2); eGFR > 60.00
[2023-11-27 08:29] LABS: Potassium 4.3 mmol/L (3.5-5.1)
[2023-11-27] MEDS: FLOMAX 0.400000000000000022 MG PO (09:03)
[2023-11-27] MEDS: NSS 1000 IV (09:03)
--- NOTE | 2023-11-27 11:45 | W.PN.HOSP.TC ---
Addendum entered and electronically signed by Michael Gallardo MD 11/27/23 15:27:
[id number]
Original Note:
Today's Communication/Plan
-
Levofloxacin additional 8 days complete 10-day course
Follow-up BMP, CBC in 3 to 5 days
Assessment / Plan
Assessment / Plan
Physical Exam
General: Well Developed, Well Nourished and No Apparent Distress
HEENT: NormoCephalic, Moist mucous membranes and Atraumatic
Respiratory: Clear
Cardiac: S1/S2 and Regular Rhythm; No Murmur or Rub
GI: Soft, Non Tender, Non Distended and Normal Bowel Sounds; No Organomegaly
Rectal: Deferred by Provider
Musculoskeletal: No Clubbing, No Cyanosis and No Edema
Skin: No Rash
Neuro: Nonfocal/grossly intact
# Large retroperitoneal perinephric hematoma with severe right hydronephrosis/hydroureter/UPJ obstruction
# Obstructive pyelonephritis from UPJ obstruction
# Bladder tumor status post recent TURBT on 11/05
-CT abdomen pelvis shows large retroperitoneal perinephric hematoma displacing the right kidney slightly anteriorly persistent severe right hydronephrosis/hydroureter with enlarged extrarenal pelvis suggesting UPJ obstruction
-Urology consulted and considering percutaneous nephrostomy tube if needed - no urological intervention deemed necessary at this time by urology
-If not improving, then also drain hematoma - not needed at this time
#complex UTI
--Urinalysis indicative of infection
-Check urine culture, blood culture
� Urine cultures growing Klebsiella Aerogenes; blood cultures no growth to date
-Zosyn - switch to levofloxacin 750 mg to complete 10-day course for complicated UTI and pneumonia
-see plan above
# Right base pneumonia with possible mild to moderate right pleural effusion likely from aspiration from anesthesia during TURBT
-No sputum cultures
� Ambulating well without any evidence of respite distress
-Switch zosyn to Levaquin to complete 10-day course due to complicated UTI
# Small to moderate asymptomatic pericardial effusion
-EKG shows normal sinus rhythm
-No evidence of pericarditis clinically
-Check echo: small effusion with no compromise
#Leukocytosis
� Appears to be chronic at times although most likely exacerbated by acute infection
� Remains afebrile, can follow-up outpatient CBC in 3-5 days
#Thrombocytosis
-f/u cbc outpatient
=-most likely reactive 2/2 to infection
# Hyponatremia secondary to decreased p.o. intake/prior diarrhea
-improving
-tolerating diet well now
-wants to go home, with improvement in sodium - f/u bmp closely with pcp in 3 -5 days
# Constipation secondary to loperamide use
-As needed MiraLAX if needed
-loperamide prn
# Transaminitis unclear etiology
-Continue to monitor
possibly 2/2 to infection
-improving
Full code
DVT prophylaxis�SCDs
More than 30 minutes spent in discharge including
Final examination of the patient
Summarizing hospital stay
Instructions for continuing care to all relevant caregivers
Preparation of discharge records, prescriptions, and referral forms
Total time spent (35 in minutes):
Anticipated Discharge: Today
Subjective/Interval History
-
Date of Service: November 27, 2023
patient desires to go home; no urological intervention at this time; sodium improved; ambulating around room. cultures finalized
Objective Data
-
Labs:
Laboratory Results
11/27/23
06:40
WBC 24.4 H
Hgb 9.6 L
Hct 28.4 L
Plt Count 786 H
Sodium 131 L
Potassium 4.3
Chloride 100
Carbon Dioxide 19 L
BUN 20
Creatinine 1.1
Glucose 87
Calcium 7.7 L
Total Bilirubin 0.8
AST 79 H
ALT 70 H
Alkaline Phosphatase 122
Vital Signs:
Vital Signs
Temp Pulse Resp BP Pulse Ox
98.7 F 75 19 114/60 95
11/27/23 07:30 11/27/23 07:30 11/27/23 07:30 11/27/23 07:30 11/27/23 07:30
I&O
11/26/23 11/27/23 11/28/23
06:59 06:59 06:59
Intake Total 1060 / 1060 2422 / 2422
Output Total 175 / 175
Balance 885 / 885 2422 / 2422
Review of Systems
-
History Source: Patient
All other systems: Not reviewed unless documented
Data Reviewed
-
Diagnostic Radiology: Image personally visualized and interpreted and Report Reviewed by me
CT Scan: Image personally visualized and interpreted and Report Reviewed by me
Labs: Labs Reviewed by me
--- NOTE | 2023-11-27 11:58 | W.DS.TRANS ---
Addendum entered and electronically signed by Michael Gallardo MD 11/27/23 15:13:
Continue tamsulosin 0.8 mg qhs on discharge
Original Note:
DC Summary - Private Tutor
-
Discharge Instructions:
Discharge Diagnosis/Procedures
#complex UTI
# Large retroperitoneal perinephric hematoma
with severe right hydronephrosis/hydroureter/UPJ
obstruction
# Obstructive pyelonephritis from UPJ
obstruction
# Bladder tumor status post recent TURBT on 11/05
Diet Low Cholesterol,Low Fat
Activity As tolerated
Blood Work cbc, bmp in 3-5 days with pcp
Instructions:
Stand-Alone Forms:
Changes to Home Medications: Yes
Discharge Medications:
DC Medications w/original date entered in [employer]
loperamide 2 mg tablet 2 mg PO TIDPRN PRN diarrhea 11/25/23
tamsulosin 0.4 mg capsule (Flomax) 0.4 mg PO BID Urinary Issue 11/25/23
levofloxacin 750 mg tablet 750 mg PO DAILY 8 days #8 tabs 11/27/23
Home Medication Changes
levofloxacin 750 mg tablet 750 mg PO DAILY 8 days #8 tabs 11/27/23
Pending Results: No
--- NOTE | 2023-11-27 12:23 | W.PN.UPDATE ---
Update Note
Progress Note Update
PNA
cUTI
Bladder cancer (s/p blue light TURBT)
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
Right RP hematoma
Severe (chronic suspected) right hydroureteronephrosis secondary to obstructing ureteral/bladder tumor
Hgb stable over last 48 hrs
Cr @baseline (1.1)
Patient still tired but feels dramatically better over last 48 hrs since admission
Denies flank/abdominal/pelvic pain.
- Levaquin 750 mg daily course on discharge for PNA/cUTI
- Will postpone right URS/biopsy/stent placement for 3-4 weeks given PNA this admission
- Continue tamsulosin 0.8 mg qhs on discharge
- Repeat CBC/BMP in 1 week as outpatient
Discussed plan of care w/ patient.
Discussed w/ Dr. Gallardo.
[2023-11-27 14:21] LABS: Hematocrit 28.4 % (39.0-52.0); Hemoglobin 9.3 g/dL (13.0-18.0); Mean Corp Hgb Conc. 32.7 g/dL (33.0-37.0); Mean Corpuscular Hgb 28.2 pg (27.0-31.0); Mean Corpuscular Volume 86.1 fL (80.0-94.0); Mean Platelet Volume 9.1 fL (7.4-10.4); Platelet Count 733 10^3/uL (130-400); Red Cell Dist. Width 14.2 % (11.5-14.5)
[2023-11-27 15:06] VITALS: BP 127/67
--- NOTE | 2023-11-27 15:28 | CM ---
Patient is for discharge to home no needs when stable.
Plan; Home no needs.
== END 2023-11-27 15:57 | disposition home or self-care (01) | DRG 371 ==
LOC: 4 WEST ACU 19:01
PROVIDERS: Physician Assistant; ADMITTING PHYSICIAN Hospitalist; ATTENDING PHYSICIAN Internal Medicine; CONSULT PHYSICIAN Specialist; EMERGENCY PHYSICIAN Student in an Organized Health Care Education/Training Program; FAMILY PHYSICIAN Internal Medicine
DX: K68.3 Retroperitoneal hematoma (principal); J69.0 Pneumonitis due to inhalation of food and vomit; E87.1 Hypo-osmolality and hyponatremia; J90 Pleural effusion, not elsewhere classified; N13.1 Hydronephrosis with ureteral stricture, not elsewhere classified; I31.39 Other pericardial effusion (noninflammatory); Z11.52 Encounter for screening for COVID-19; K59.00 Constipation, unspecified; D75.839 Thrombocytosis, unspecified
CPT/HCPCS: 71046; 74176; 80053; 81003; 81015; 83605; 83880; 83930; 83935; 84300; 84484; 85025; 85027; 86022; 86706; 86803; 87040; 87077; 87086; 87186; 87340; 87502; 87811; 93005; 93306; 96361; 96374; 99285; 99406

== ENCOUNTER → 2023-12-22 11:41 | Outpatient (REF) | payer OTHER, SELFPAY | LOC: RAD 11:41 | PROVIDERS: ATTENDING PHYSICIAN Internal Medicine; REFERRING PHYSICIAN Surgery | DX: N13.9 Obstructive and reflux uropathy, unspecified (principal); N10 Acute pyelonephritis; J18.9 Pneumonia, unspecified organism; I31.39 Other pericardial effusion (noninflammatory); E87.1 Hypo-osmolality and hyponatremia; C67.9 Malignant neoplasm of bladder, unspecified; Z09 Encounter for follow-up examination after completed treatment for conditions other than malignant neoplasm | CPT/HCPCS: 71046 ==

== ENCOUNTER 2024-01-15 06:15 | Day surgery (SDC) | payer OTHER, SELFPAY ==
[2024-01-15] VITALS (11 sets, daily range): BP systolic 88–156; BP diastolic 54–89; BMI 24.1
[2024-01-15] MEDS: NORMOSOL-R 1000 IV (12:17)
[2024-01-15] MEDS: Pyridium 200 MG PO (14:21)
== END 2024-01-15 15:24 | disposition home or self-care (01) ==
LOC: SDS 06:15
PROVIDERS: ATTENDING PHYSICIAN Surgery
DX: D49.59 Neoplasm of unspecified behavior of other genitourinary organ (principal); C67.9 Malignant neoplasm of bladder, unspecified; N13.30 Unspecified hydronephrosis; N13.5 Crossing vessel and stricture of ureter without hydronephrosis; N26.1 Atrophy of kidney (terminal); Z98.890 Other specified postprocedural states
CPT/HCPCS: 52354; C1769

== ENCOUNTER → 2024-02-16 11:44 | Outpatient (REF) | payer OTHER, SELFPAY ==
[2024-02-16 12:30] LABS: INR 1.07; PT 13.7 Sec (11.4-14.6)
[2024-02-16 12:34] VITALS: BP 168/86; BP_SYST 67
[2024-02-16] MEDS: STERILE WATER FOR INJECTION 20 ML IV (13:16)
[2024-02-16] MEDS: ROCEPHIN 2000 MG IV (13:16)
[2024-02-16 14:55] VITALS: BP 135/85
[2024-02-16 15:35] LABS: Urine Albumin 3+ (Neg - Trace); Urine Bilirubin Negative (Negative); Urine Character Bloody (Clear); Urine Color Brown; Urine Glucose Negative (Negative); Urine Ketone Trace (Negative); Urine Leukocyte Trace (Negative); Urine Nitrite Negative (Negative); Urine Occult Blood 4+ (Negative); Urine Specific Gravity 1.015 (<1.030); Urine Urobilinogen Negative (Neg - 1+)
[2024-02-16 16:05] LABS: Urine Bacteria Few (Negative); Urine Red Blood Cell >100 /HPF (0-2); Urine White Cell >100 /HPF (0-5)
--- NOTE | 2024-02-17 13:34 | PTCARENOTE ---
patient called at 1330 on 02/17/24 stating that he had showered and saturated his dressing. I have educated him not to shower or submerge his drain/dressing into water and to sponge bath. He states 'well I am going to shower every day'. While
purchasing new gauze and dressing at [facility], he states that he will be coming to IR today for a dressing change as he cannot change his dressing by himself. I have highlighted and given the patient a copy of his discharge paperwork for drain care.
== END ==
LOC: REG 11:44
PROVIDERS: ATTENDING PHYSICIAN Surgery; FAMILY PHYSICIAN Internal Medicine
DX: D68.8 Other specified coagulation defects (principal)
CPT/HCPCS: 36415; 50432; 81003; 81015; 85610; 87086; 88112; 99152; 99153; C1729; C1769

== ENCOUNTER → 2024-02-29 09:26 | Outpatient (REF) | payer OTHER, SELFPAY ==
[2024-02-29 09:42] VITALS: BP 156/86; BP_SYST 62
[2024-02-29 11:25] VITALS: BP 132/80
[2024-02-29 11:30] VITALS: BP 144/87
[2024-02-29 11:31] VITALS: BP 144/87; BP_SYST 62
[2024-02-29 11:35] VITALS: BP 121/80
== END ==
LOC: RADI 09:26
PROVIDERS: ATTENDING PHYSICIAN Surgery; FAMILY PHYSICIAN Internal Medicine
DX: N13.2 Hydronephrosis with renal and ureteral calculous obstruction (principal); N28.89 Other specified disorders of kidney and ureter
CPT/HCPCS: 50431; 99152

== ENCOUNTER 2024-04-21 06:32 | Day surgery (SDC) | payer OTHER, SELFPAY ==
[2024-04-15 08:08] VITALS: BMI 26.6
[2024-04-15 08:50] LABS: Hematocrit 42.8 % (39.0-52.0); Hemoglobin 14.6 g/dL (13.0-18.0); Mean Corp Hgb Conc. 34.1 g/dL (33.0-37.0); Mean Corpuscular Hgb 28.5 pg (27.0-31.0); Mean Corpuscular Volume 83.6 fL (80.0-94.0); Mean Platelet Volume 10.7 fL (7.4-10.4); Platelet Count 267 10^3/uL (130-400); Red Blood Cell Count 5.12 10^6/uL (4.70-6.10); Red Cell Dist. Width 13.7 % (11.5-14.5)
[2024-04-15 09:19] LABS: Blood Urea Nitrogen 16 mg/dl (9-20); Calcium 9.2 mg/dl (8.4-10.2); Carbon Dioxide 26 mmol/L (22-30); Chloride 107 mmol/L (98-107); Estimated Creatinine Clearance 72 ml/min; Glucose 82 mg/dl (70-99); Potassium 4.3 mmol/L (3.5-5.1); Sodium 143 mmol/L (135-145); eGFR > 60.00
[2024-04-21 12:47] VITALS: BP 165/86; BMI 26.6
[2024-04-21 15:45] VITALS: BP 153/74; BP 165/86
[2024-04-21 16:00] VITALS: BP 134/85
[2024-04-21 16:15] VITALS: BP 146/81
[2024-04-21 16:25] VITALS: BP 144/72
[2024-04-21 16:45] VITALS: BP 140/68
== END 2024-04-21 17:03 | disposition home or self-care (01) ==
LOC: SDS 06:32
PROVIDERS: Radiology Neuroradiology; ATTENDING PHYSICIAN Surgery; FAMILY PHYSICIAN Internal Medicine
PROC: 0T25X0Z Change Drainage Device in Kidney, External Approach (ICD-10-PCS; 2024-04-21)
PROC: BT1D1ZZ Fluoroscopy of Right Kidney, Ureter and Bladder using Low Osmolar Contrast (ICD-10-PCS; 2024-04-21)
DX: Z43.6 Encounter for attention to other artificial openings of urinary tract (principal); Z85.51 Personal history of malignant neoplasm of bladder; N13.39 Other hydronephrosis
CPT/HCPCS: 50435; 36415; 74420; 76000; 80048; 85027; 88112; A4300; C1769

== ENCOUNTER → 2024-05-05 13:59 | Outpatient (REF) | payer OTHER, SELFPAY | LOC: RAD 13:59 | PROVIDERS: ATTENDING PHYSICIAN Surgery; FAMILY PHYSICIAN Internal Medicine | DX: C67.9 Malignant neoplasm of bladder, unspecified (principal); D49.59 Neoplasm of unspecified behavior of other genitourinary organ | CPT/HCPCS: 74178; Q9967 ==

== ENCOUNTER 2024-05-24 06:21 | Day surgery (SDC) | payer OTHER, SELFPAY ==
[2024-05-24] VITALS (10 sets, daily range): BP systolic 138–152; BP diastolic 80–89; BMI 27.6
[2024-05-24] MEDS: NORMOSOL-R/PLASMALYTE-A 1000 IV (08:02)
--- NOTE | 2024-05-24 08:32 | PTCARENOTE ---
Patient had Cystview ordered and patient adamantly refused it. Tried talking patient into taking the medications and he stated that he had a bad experience in the patient with Cystview and catheter insertion. Called into the OR and notified
Peffer that patient would not take the medication and surgeon aware. Will monitor patient.
[2024-05-24] MEDS: TYLENOL 1000 MG PO (08:53)
[2024-05-24] MEDS: Pyridium 200 MG PO (11:34)
== END 2024-05-24 12:44 | disposition home or self-care (01) ==
LOC: SDS 06:21
PROVIDERS: ATTENDING PHYSICIAN Urology
DX: C67.9 Malignant neoplasm of bladder, unspecified (principal); N28.89 Other specified disorders of kidney and ureter
CPT/HCPCS: 52235; 88305; 88307; 88341; 88342; A9589

== ENCOUNTER 2024-05-24 20:29 | Emergency (ER) | payer OTHER, SELFPAY ==
[2024-05-24 20:36] VITALS: BP 165/90
[2024-05-24 20:58] LABS: % Basophils 0.2 % (0-2); % Immature Granulocytes 0.4 % (0-0.5); % Lymphocytes 6.7 % (20.5-51.1); % Monocytes 0.9 % (1.7-9.3); % Neutrophils 91.8 % (42.2-75.2); Absolute Immature Granulocytes 0.1 10^3/uL (0-0.05); Absolute Lymphocytes 1.1 10^3/uL (1.2-3.4); Absolute Monocytes 0.1 10^3/uL (0.1-0.6); Absolute Neutrophils 14.4 10^3/uL (1.4-6.5); Hematocrit 39.2 % (39.0-52.0); Hemoglobin 14.2 g/dL (13.0-18.0); Mean Corp Hgb Conc. 36.2 g/dL (33.0-37.0); Mean Corpuscular Hgb 28.4 pg (27.0-31.0); Mean Corpuscular Volume 78.4 fL (80.0-94.0); Mean Platelet Volume 10.3 fL (7.4-10.4); Nucleated Red Blood Cells % 0 % (-); Platelet Count 293 10^3/uL (130-400); Red Cell Dist. Width 13.9 % (11.5-14.5); White Blood Cell Count 15.7 10^3/uL (4.8-10.8)
[2024-05-24 21:11] LABS: ALT (SGPT) 32 U/L (0-50); AST (SGOT) 34 U/L (17-59); Albumin 4.8 g/dl (3.5-5.0); Alkaline Phosphatase 82 U/L (38-126); Blood Urea Nitrogen 18 mg/dl (9-20); Calcium 9.7 mg/dl (8.4-10.2); Carbon Dioxide 18 mmol/L (22-30); Chloride 104 mmol/L (98-107); Glucose 132 mg/dl (70-99); Potassium 4.9 mmol/L (3.5-5.1); Sodium 139 mmol/L (135-145); Total Bilirubin 0.8 mg/dl (0.2-1.3); Total Protein 7.6 g/dl (6.3-8.2); eGFR > 60.00
[2024-05-24 22:48] VITALS: BP 169/95
--- NOTE | 2024-05-24 23:32 | ED.GENMED ---
History of Present Illness
General
Chief Complaint: Urinary Symptoms
Source: patient
Exam Limitations: none
Time Seen by Provider: 05/24/24 23:24
History of Present Illness
History of Present Illness:
Patient with inability to urinate since postprocedure today. Complaining of severe lower abdominal pressure and pain. No fever or chills. Ongoing right nephrostomy tube. Today they did a removal of a right nephrostomy tube, percutaneous
antegrade ureteroscopy, ureteral washings, antegrade right nephro/ureterogram, insertion of a right nephrostomy tube.
Past History
Past History
ED Past Surgical History: Urological
Review of Systems
Review of Systems
All Other Systems: Not applicable
Constitutional: Denies fever or chills
Phy Exam
Physical Exam
Physical Exam:
GENERAL: Alert and oriented. Nontoxic but appears uncomfortable
EYE: Orbits normal.
NECK: Supple
CARDIAC: Regular rate and rhythm without any obvious murmurs.
LUNGS: Clear breath sounds,normal
ABDOMEN: Soft. Suprapubic fullness and tenderness. Right nephrostomy tube in place
NEUROLOGICAL: Alert and oriented , grossly non-focal
SKIN: Warm and dry
PSYCH: Normal and appropriate interaction.
Course
Orders/Labs/Results
Orders:
Orders
05/24/24 20:45
Complete Blood Count/With Diff Urgent
Comprehensive Metabolic Panel Urgent
05/25/24 00:07
HYDROmorphone [Dilaudid] 0.5 mg .ROUTE .ST-MED ONE
05/25/24 00:11
HYDROmorphone [Dilaudid] 0.5 mg IV NOW STA
05/25/24 00:36
Urinalysis Reflex To Culture Urgent
Date Specimen was Collected: 05/25/24
Time Specimen was Collected: 00:33
Urine Microscopic Reflex Cult Urgent
Urine Culture Urgent
CELESTINO Source: U
Specimen Description:
Date Specimen was Collected: 05/25/24
Time Specimen was Collected: 00:33
05/25/24 01:10
CefTRIAXone [Rocephin] 1,000 mg IV NOW STA
Abnormal Lab Results
05/24/24 05/25/24
20:45 00:36
WBC 15.7 H 10^3/uL
(4.8-10.8)
MCV 78.4 L fL
(80.0-94.0)
Abs Immat Gran (auto) 0.1 H 10^3/uL
(0-0.05)
Absolute Neuts (auto) 14.4 H 10^3/uL
(1.4-6.5)
Absolute Lymphs (auto) 1.1 L 10^3/uL
(1.2-3.4)
Neutrophils % 91.8 H %
(42.2-75.2)
Lymphocytes % 6.7 L %
(20.5-51.1)
Monocytes % 0.9 L %
(1.7-9.3)
Carbon Dioxide 18 L mmol/L
(22-30)
Glucose 132 H mg/dl
(70-99)
Urine Ketones Trace A
(Negative)
Ur Occult Blood Reflex 4+ A
(Negative)
Urine Nitrite (Reflex) Positive A
(Negative)
Urine Bilirubin 2+ A
(Negative)
Urine Urobilinogen 3+ A
(Neg - 1+)
Leukocyte Esterase Rfl Trace A
(Negative)
Urine RBC >100 A /HPF
(0-2)
Urine Albumin (Reflex) 1+ A
(Neg - Trace)
05/24/24 20:45
05/24/24 20:45
Vital Signs
Initial and Last Documented VS:
Initial Vital Signs
Temp Pulse Resp BP Pulse Ox
97.9 F 78 19 165/90 95
05/24/24 20:36 05/24/24 20:36 05/24/24 20:36 05/24/24 20:36 05/24/24 20:36
Last Documented Vital Signs
Temp Pulse Resp BP Pulse Ox
97.8 F 75 18 158/90 97
05/24/24 22:48 05/25/24 02:15 05/25/24 02:15 05/25/24 02:15 05/25/24 02:15
*Pulse Oximetry
Patient hypoxic: no
*Critical Care Note
Total Time (30-74mins, 75-104mins- exclusive of procedures): Not Applicable
Update Note
Update Note:
Message sent to urology. Cisneros catheter placed. About 500 cc. Patient appears much more comfortable. Chronic leukocytosis. Will cover with antibiotics however.
ED Attending Note
-
Portions of this chart may have been created with voice recognition software.� Occasional wrong word or��sound alike� substitutions may have occurred due to the inherent limitations of voice recognition software.
Discharge Plan
Departure
Patient Disposition: Home (Routine Discharge)
Date of Disposition: 05/25/24
Time of Disposition: 01:10
Patient with high blood pressure during this ER visit?: Yes
Discharge Problem:
Urinary obstruction.
Instructions: How to Care for Your Cisneros Catheter, Male, BLOOD PRESSURE
Prescriptions:
New
cefdinir 300 mg capsule
300 mg PO BID 5 Days Qty: 10 0RF
Referrals:
Cheng Castillo MD [Family Provider] -
Activity Restrictions/Additional Instructions:
Call your urologist in the morning for close follow-up
Your prescription was sent to your pharmacy
Antibiotics as directed
Return with any issues including black Cisneros fever vomiting or any other concerning symptoms
Interventions
Interventions:
*Risk Screen - Suicide Last Done: 05/24/24 20:39
*General Assessment Last Done: 05/25/24 01:00
*Neglect/Abuse Screening Last Done: 05/24/24 20:39
ED- Fall Risk Assessment Last Done: 05/25/24 01:00
*ED COVID-19 Vaccine History Last Done: 05/25/24 01:00
*Nursing Disposition Last Done: 05/25/24 02:15
ED-Male Genitourinary Assessment Last Done: 05/25/24 00:10
Discharge Date and Time
Discharge Date/Time: 05/25/24 02:18
Print Language: [place] CITIZEN
[2024-05-25] MEDS: DILAUDID 0.5 MG IV (00:11)
[2024-05-25 00:45] LABS: Urine Albumin 1+ (Neg - Trace); Urine Bilirubin 2+ (Negative); Urine Color Amber; Urine Glucose Negative (Negative); Urine Ketone Trace (Negative); Urine Leukocyte Trace (Negative); Urine Nitrite Positive (Negative); Urine Occult Blood 4+ (Negative); Urine Urobilinogen 3+ (Neg - 1+)
[2024-05-25 00:55] LABS: Urine Character Cloudy (Clear)
[2024-05-25 01:33] LABS: Urine Amorphous Seen; Urine Red Blood Cell >100 /HPF (0-2)
[2024-05-25 01:34] LABS: Urine Squamous Cell SEEN /LPF (Few)
[2024-05-25] MEDS: ROCEPHIN 1000 MG IV (01:47)
[2024-05-25 02:15] VITALS: BP 158/90
== END 2024-05-25 02:18 | disposition home or self-care (01) ==
LOC: EMR 20:29
PROVIDERS: EMERGENCY PHYSICIAN Emergency Medicine; FAMILY PHYSICIAN Internal Medicine
DX: N13.9 Obstructive and reflux uropathy, unspecified (principal); R10.30 Lower abdominal pain, unspecified
CPT/HCPCS: 99283; 51702; 96374; 96375; 80053; 81003; 81015; 85025; 87086

== ENCOUNTER 2024-06-16 07:22 | Inpatient (IN) | payer OTHER, SELFPAY ==
[2024-06-07 10:39] VITALS: BMI 26.7
--- NOTE | 2024-06-10 09:02 | PTCARENOTE ---
Linnette in Dr Long's office made aware of WBC 15.7 from 05/24/24.
[2024-06-16] VITALS (15 sets, daily range): BP systolic 99–144; BP diastolic 54–74; BMI 26.7
[2024-06-16] MEDS: SYRINGE NON-PUMP 50 ML IRRIG ×2 (15:56→15:58)
[2024-06-16] MEDS: SYRINGE NON-PUMP 50 MG IRRIG ×2 (15:56→15:58)
[2024-06-16] MEDS: DILAUDID 0.5 MG IV ×2 (16:01→17:29)
--- NOTE | 2024-06-16 16:30 | PTCARENOTE ---
Gemcitibine instilled into bladder by Dr Long, pt tolerated well, pt tense, 'jumpy' w/any stimulation. Gemcitibine dwelling at present.
[2024-06-16] MEDS: NSS 1000 IV ×2 (17:15→23:47)
[2024-06-16] MEDS: TORADOL 15 MG IV ×2 (17:16→21:00)
--- NOTE | 2024-06-16 18:18 | PTCARENOTE ---
pt admitted to room 2103 from PACU. pt arrived via bed, drowsy, arouses easily but returns to sleep. assessment and admission database completed as documented. pt oriented to room, bed controls, call king and plan of care with verbalized
understanding. tolerating sips of water. care ongoing.
[2024-06-16 18:36] LABS: Hematocrit 34.6 % (39.0-52.0); Hemoglobin 12.1 g/dL (13.0-18.0); Mean Corpuscular Hgb 29.7 pg (27.0-31.0); Mean Corpuscular Volume 84.8 fL (80.0-94.0); Mean Platelet Volume 10.5 fL (7.4-10.4); Platelet Count 297 10^3/uL (130-400); Red Blood Cell Count 4.08 10^6/uL (4.70-6.10); Red Cell Dist. Width 14.1 % (11.5-14.5); White Blood Cell Count 17.5 10^3/uL (4.8-10.8)
[2024-06-16 18:51] LABS: Blood Urea Nitrogen 16 mg/dl (9-20); Calcium 8.5 mg/dl (8.4-10.2); Carbon Dioxide 20 mmol/L (22-30); Chloride 103 mmol/L (98-107); Estimated Creatinine Clearance 80 ml/min; Glucose 155 mg/dl (70-99); Potassium 4.3 mmol/L (3.5-5.1); Sodium 141 mmol/L (135-145); eGFR > 60.00
[2024-06-16] MEDS: SENOKOT 17.2 MG PO (20:27)
[2024-06-16] MEDS: FLOMAX 0.4 MG PO (20:27)
[2024-06-17 03:01] VITALS: BP 124/56
[2024-06-17] MEDS: TORADOL 15 MG IV ×2 (03:01→11:31)
[2024-06-17 06:22] LABS: Hematocrit 32.2 % (39.0-52.0); Hemoglobin 11.1 g/dL (13.0-18.0); Mean Corp Hgb Conc. 34.5 g/dL (33.0-37.0); Mean Corpuscular Hgb 29.4 pg (27.0-31.0); Mean Corpuscular Volume 85.2 fL (80.0-94.0); Mean Platelet Volume 10.7 fL (7.4-10.4); Platelet Count 277 10^3/uL (130-400); Red Blood Cell Count 3.78 10^6/uL (4.70-6.10); Red Cell Dist. Width 14.2 % (11.5-14.5); White Blood Cell Count 16.5 10^3/uL (4.8-10.8)
[2024-06-17 06:43] LABS: Blood Urea Nitrogen 18 mg/dl (9-20); Calcium 8.5 mg/dl (8.4-10.2); Carbon Dioxide 22 mmol/L (22-30); Chloride 104 mmol/L (98-107); Estimated Creatinine Clearance 90 ml/min; Glucose 101 mg/dl (70-99); Potassium 4.2 mmol/L (3.5-5.1); Sodium 139 mmol/L (135-145); eGFR > 60.00
[2024-06-17 07:13] VITALS: BP 117/56
[2024-06-17 07:33] LABS: Hepatitis C Antibody Negative (Negative)
[2024-06-17] MEDS: FLOMAX 0.4 MG PO (08:10)
[2024-06-17] MEDS: SENOKOT PO (08:15)
[2024-06-17 11:05] VITALS: BP 126/70
--- NOTE | 2024-06-17 13:09 | W.PN.URO.CBU ---
Today's Communication / Plan
-
Discharge
Assessment / Plan
-
69M POD 1 s/p R nephroureterectomy for R ureteral mass, known bladder cancer
- Stable today post op. Mild anemia which is likely most dilutional s/p 2 L IVF overnight
- Pain controlled and tolerating diet
- OOB/ambulate today
- IS
- Discharge home with maldonado in place this afternoon
Diagnosis
-
Date of Service: June 17, 2024
-
Patient Diagnosis: R ureteral mass
Post Op Day: 1 s/p R nephroureterectomy
Subjective
-
Feeling well
tolerating diet
pain controlled
vitals stable
Objective
-
Vital Signs
Temp Pulse Resp BP Pulse Ox
98.3 F 74 15 126/70 97
06/17/24 11:05 06/17/24 11:05 06/17/24 11:05 06/17/24 11:05 06/17/24 11:05
Intake and Output
06/16/24 06/17/24 06/18/24
06:59 06:59 06:59
Intake Total 2280 / 2280
Output Total 1450 / 1450
Balance 830 / 830
Intake:
Oral fluids 480 / 480
IV fluids (Total) 1800 / 1800
normosol 300 / 300
Output:
Urine, Maldonado 1450 / 1450
Laboratory Results
06/17/24 05:32
06/17/24 05:32
Physical Exam
-
General - well developed, well nourished, no acute distress
Chest - clear bilaterally
Abdomen - soft, non-tender
Skin - warm & dry with no rash
Neuro - AOx3, no motor deficits
Extremities - no clubbing, no cyanosis, no edema
Incision - clean, dry
Dressing - clean, dry, intact
--- NOTE | 2024-06-17 13:17 | CM ---
Met with pt at bedside
Pt reports he lives in a 3 story home with a friend; 2 steps to enter, 12 steps to 2nd fl
Independent at baseline, retired, drives
DME - none
SNF/HH - no past hx
Has ride home at discharge
PCP - Cheng Castillo
Pharm - [facility]
Plan - anticipate home no needs when medically ready
[2024-06-17] MEDS: FLUAD (65 yr+) 2024-2025 FORMULA 0.5 ML IM (14:25)
--- NOTE | 2024-06-21 11:08 | W.DS.TRANS ---
DC Summary - Camper Assembler
-
Discharge Instructions:
Sleep Apnea Risk Intermediate
Discharge Diagnosis/Procedures Right ureteral tumor
Robotic right nephroureterectomy
Diet No restrictions
Activity No strenuous activity
Additional Activity avoid lifting >15 pounds, straining, or
strenuous exercise for 4 weeks after surgery
Driving Restrictions As prior to admission
Bathing Restrictions OK to Shower
Wound Care gently rinse incisions in the shower. Dont scrub
or pick glue
Instructions:
Stand-Alone Forms:
Changes to Home Medications: No
Discharge Medications:
DC Medications w/original date entered in [employer]
acetaminophen 500 mg tablet 500 mg PO PRN PRN pain 06/09/24
simethicone 125 mg tablet 125 mg PO PRN PRN gas 06/09/24
tamsulosin 0.4 mg capsule 0.4 mg PO BID Urinary Issue 06/09/24
oxycodone-acetaminophen 5 mg-325 mg tablet 1 tab PO Q4HPRN PRN moderate pain #15 tabs 06/17/24
Home Medication Changes
Pending Results: Yes (pathology)
== END 2024-06-17 14:46 | disposition home or self-care (01) | DRG 654 ==
LOC: 2 SOUTH 07:22
PROVIDERS: ADMITTING PHYSICIAN Urology; FAMILY PHYSICIAN Internal Medicine
PROC: 8E0W4CZ Robotic Assisted Procedure of Trunk Region, Percutaneous Endoscopic Approach (ICD-10-PCS; 2024-06-16)
PROC: 0TT04ZZ Resection of Right Kidney, Percutaneous Endoscopic Approach (ICD-10-PCS; 2024-06-16)
PROC: 0TQB4ZZ Repair Bladder, Percutaneous Endoscopic Approach (ICD-10-PCS; 2024-06-16)
PROC: 0TT64ZZ Resection of Right Ureter, Percutaneous Endoscopic Approach (ICD-10-PCS; 2024-06-16)
DX: C79.19 Secondary malignant neoplasm of other urinary organs (principal); N13.30 Unspecified hydronephrosis; C67.9 Malignant neoplasm of bladder, unspecified; Z79.899 Other long term (current) drug therapy; Z80.42 Family history of malignant neoplasm of prostate
CPT/HCPCS: 88307; 36415; 80048; 85027; 86803; 86850; 86900; 86901; 86920; 88342; 90662; 93005; G0008; J9201

== ENCOUNTER 2024-09-09 06:32 | Day surgery (SDC) | payer OTHER, SELFPAY ==
[2024-09-09] VITALS (8 sets, daily range): BP systolic 87–144; BP diastolic 59–90; BMI 26.9
--- NOTE | 2024-09-09 12:45 | W.SUR.PREOP ---
Pre-Operative Surgical Note
-
I have examined this patient prior to the performance of the scheduled procedure.
The patient's condition is unchanged from the time of the current History and
Physical and the patient is able to undergo the scheduled procedure.
To OR for cystoscopy/bladder biopsy/fulguration and possible SPT placement
[2024-09-09] MEDS: DETROL LA 4 MG PO (13:52)
[2024-09-09] MEDS: Pyridium 200 MG PO (14:17)
== END 2024-09-09 14:50 | disposition home or self-care (01) ==
LOC: SDS 06:32
PROVIDERS: ATTENDING PHYSICIAN Surgery
DX: Z08 Encounter for follow-up examination after completed treatment for malignant neoplasm (principal); Z85.51 Personal history of malignant neoplasm of bladder; Z85.54 Personal history of malignant neoplasm of ureter; Z90.5 Acquired absence of kidney
CPT/HCPCS: 52000

== ENCOUNTER → 2025-03-22 07:18 | Outpatient (REF) | payer OTHER, SELFPAY | LOC: RAD 07:18 | PROVIDERS: ATTENDING PHYSICIAN Surgery; FAMILY PHYSICIAN Physician Assistant | DX: C66.1 Malignant neoplasm of right ureter (principal) | CPT/HCPCS: 74177; Q9967 ==

== ENCOUNTER 2025-03-24 06:16 | Day surgery (SDC) | payer OTHER, SELFPAY ==
[2025-03-22 08:50] LABS: Hematocrit 41.3 % (39.0-52.0); Hemoglobin 14.1 g/dL (13.0-18.0); Mean Corp Hgb Conc. 34.1 g/dL (33.0-37.0); Mean Corpuscular Volume 86.0 fL (80.0-94.0); Platelet Count 266 10^3/uL (130-400); Red Cell Dist. Width 13.2 % (11.5-14.5)
[2025-03-22 09:46] LABS: Blood Urea Nitrogen 19 mg/dl (9-20); Calcium 9.4 mg/dl (8.4-10.2); Carbon Dioxide 24 mmol/L (22-30); Chloride 108 mmol/L (98-107); Glucose 95 mg/dl (70-99); Potassium 4.8 mmol/L (3.5-5.1); Sodium 141 mmol/L (135-145); eGFR > 60.00
[2025-03-22 13:57] VITALS: BMI 26.4
[2025-03-24] VITALS (8 sets, daily range): BP systolic 96–155; BP diastolic 58–93; BMI 26.4
== END 2025-03-24 14:34 | disposition home or self-care (01) ==
LOC: SDS 06:16
PROVIDERS: ATTENDING PHYSICIAN Surgery; FAMILY PHYSICIAN Internal Medicine
DX: C67.9 Malignant neoplasm of bladder, unspecified (principal); Z85.51 Personal history of malignant neoplasm of bladder; Z85.54 Personal history of malignant neoplasm of ureter
CPT/HCPCS: 52234; 36415; 80048; 85027; 88307; 93005